=== PATIENT | female | born 1950 | race Caucasian/White ===

== ENCOUNTER → 2016-11-07 | Outpatient (CLI) | payer OTHER | LOC: KOH-I 09:00 | DX: R26.9 Unspecified abnormalities of gait and mobility (principal); Z98.2 Presence of cerebrospinal fluid drainage device; R90.89 Other abnormal findings on diagnostic imaging of central nervous system; I62.9 Nontraumatic intracranial hemorrhage, unspecified | CPT/HCPCS: 70450 ==

== ENCOUNTER → 2021-10-12 | Day surgery (SDC) | payer OTHER ==
[~2021-10-12] MED LIST: AMITRIPTYLINE H10 MG PO; BIOTIN800 MCG PO; HYDROCHLOROTH12.5 MG PO; LEVOTHYROXINE100 MC2 PO; LEXAPRO TAB 1010 MG PO; LIPITOR TAB 1010 MG PO; ONE DAILY WOME0.4 MG PO; PROBIOTIC1 EACH PO; PROPAFENONE HC325 MG PO; TOPROL XL25 MG PO; VITAMIN D3125 MCG PO; ZESTRIL5 MG PO
== END | disposition home or self-care (01) ==
LOC: OR 06:42
DX: Z12.11 Encounter for screening for malignant neoplasm of colon (principal); D12.3 Benign neoplasm of transverse colon; K57.30 Diverticulosis of large intestine without perforation or abscess without bleeding; K64.0 First degree hemorrhoids; K64.1 Second degree hemorrhoids; I10 Essential (primary) hypertension; Z20.822 Contact with and (suspected) exposure to COVID-19
CPT/HCPCS: J2001; J2704; J7040

== ENCOUNTER → 2021-12-14 | Outpatient (CLI) | payer OTHER | LOC: HEART 5 07:34 | DX: I20.9 Angina pectoris, unspecified (principal) | CPT/HCPCS: 78452; A9502; J2785 ==